=== PATIENT | female | born 1980 | race Asian ===

== ENCOUNTER → 2024-01-23 | Outpatient (CLI) | payer OTHER ==
[~2024-01-23] MED LIST: ALBU8.5H; BENZ200C70 PO; PRED20TA
[2024-01-23 13:51] LABS: BASO % 0.5 % (0.0-1.0); EOS # 0.1 10^3/uL (0.0-0.5); EOS % 1.5 % (0.0-3.0); HEMOGLOBIN 14.3 g/dl (12.0-15.5); LYMPH # 1.2 10^3/uL (1.5-5.0); LYMPH % 14.6 % (24.0-44.0); MEAN CORPUSCULAR HEMOGLOBIN 31.5 pg (27.0-33.0); MEAN CORPUSCULAR HGB CONC 32.5 g/dl (32.0-36.5); MEAN CORPUSCULAR VOLUME 96.9 fl (80.0-96.0); MONO # 1.2 10^3/uL (0.0-0.8); MONO % 14.5 % (2.0-8.0); NEUTROPHILS # 5.5 10^3/uL (1.5-8.5); NEUTROPHILS % 68.7 % (36.0-66.0); PLATELET COUNT, AUTOMATED 282 10^3/uL (150-450); RED BLOOD COUNT 4.54 10^6/uL (4.00-5.40)
[2024-01-23 13:58] LABS: THYROID STIMULATING HORMONE 1.121 uIU/ML (0.55-4.78)
[2024-01-23 13:59] LABS: ALBUMIN 3.9 G/DL (3.2-5.2); ALKALINE PHOSPHATASE 54 U/L (46-116); ALT/SGPT 27 U/L (7.0-40); AST/SGOT 23 U/L (<34); BILIRUBIN,TOTAL 0.8 MG/DL (0.3-1.2); BLOOD UREA NITROGEN 9 MG/DL (9-23); CALCIUM LEVEL 9.3 MG/DL (8.5-10.1); CARBON DIOXIDE LEVEL 25 MMOL/L (20-31); CHLORIDE LEVEL 106 MMOL/L (98-107); CHOLESTEROL LEVEL 209 MG/DL (<200); CREATININE FOR GFR 0.76 MG/DL (0.55-1.30); FREE T4 1.21 NG/DL (0.89-1.76); GLOMERULAR FILTRATION RATE > 60.0 (>58); GLUCOSE, FASTING 94 MG/DL (60-100); HDL CHOLESTEROL 54.9 MG/DL (>40); LDL CHOLESTEROL 136.9 MG/DL (<100); NON-HDL-C 154.1 MG/DL; SODIUM LEVEL 139 MMOL/L (136-145); TOTAL PROTEIN 7.2 G/DL (5.7-8.2); TRIGLYCERIDES LEVEL 86 MG/DL (<150)
== END ==
LOC: M PLALAB 10:12
PROVIDERS: ATTEND Nurse Practitioner Family
DX: R53.83 Other fatigue (principal); Z13.220 Encounter for screening for lipoid disorders

== ENCOUNTER 2024-01-24 22:41 | Emergency (ER) | payer OTHER ==
[~2024-01-24] VITALS: Ht 165.1 cm; Wt 66.7 kg
[2024-01-24 23:40] LABS: BASO % 0.2 % (0.0-1.0); EOS % 0.1 % (0.0-3.0); HEMOGLOBIN 13.7 g/dl (12.0-15.5); LYMPH # 1.4 10^3/uL (1.5-5.0); LYMPH % 12.4 % (24.0-44.0); MEAN CORPUSCULAR HEMOGLOBIN 32.3 pg (27.0-33.0); MEAN CORPUSCULAR HGB CONC 34.3 g/dl (32.0-36.5); MEAN CORPUSCULAR VOLUME 94.3 fl (80.0-96.0); MONO # 0.8 10^3/uL (0.0-0.8); NEUTROPHILS # 8.9 10^3/uL (1.5-8.5); NEUTROPHILS % 79.9 % (36.0-66.0); PLATELET COUNT, AUTOMATED 285 10^3/uL (150-450); RED BLOOD COUNT 4.24 10^6/uL (4.00-5.40); WHITE BLOOD COUNT 11.1 10^3/uL (4.0-10.0)
[2024-01-25 00:04] LABS: ALBUMIN 3.9 G/DL (3.2-5.2); ALKALINE PHOSPHATASE 51 U/L (46-116); ALT/SGPT 25 U/L (7.0-40); AST/SGOT 18 U/L (<34); BILIRUBIN,TOTAL 0.6 MG/DL (0.3-1.2); BLOOD UREA NITROGEN 11 MG/DL (9-23); CALCIUM LEVEL 9.4 MG/DL (8.5-10.1); CARBON DIOXIDE LEVEL 24 MMOL/L (20-31); CHLORIDE LEVEL 109 MMOL/L (98-107); CREATININE FOR GFR 0.61 MG/DL (0.55-1.30); GLOMERULAR FILTRATION RATE > 60.0 (>58); GLUCOSE, FASTING 122 MG/DL (60-100); POTASSIUM SERUM 4.7 MMOL/L (3.5-5.1); SODIUM LEVEL 138 MMOL/L (136-145); TOTAL PROTEIN 7.3 G/DL (5.7-8.2)
[2024-01-25] MEDS ORDERED: PRED20TA (00:36)
[2024-01-25] MEDS ORDERED: ALBU8.5H (00:36)
[2024-01-25 01:03] LABS: CK-MB VALUE MASS < 1.0 NG/ML (<3.6)
[2024-01-25 01:05] LABS: CPK CREATINE PHOSPHOKINASE 518 U/L (34-145); MB/CK RELATIVE INDEX 0.19 (< OR =4)
[2024-01-25] MEDS ORDERED: BENZ200C70 PO (01:34)
[2024-01-25] MEDS: BENZONATATE 100MG CAPSULE PO ONE (01:44)
[2024-01-25] MEDS: KETOROLAC 60MG 2ML VIAL IM ONE (01:44)
[2024-01-25 01:49] VITALS: BP 133/75; TEMP 98.2; O2SAT 99
== END 2024-01-25 01:53 | disposition home or self-care (01) ==
LOC: M ED 22:41
DX: J20.6 Acute bronchitis due to rhinovirus (principal); J44.9 Chronic obstructive pulmonary disease, unspecified; F17.210 Nicotine dependence, cigarettes, uncomplicated; F10.10 Alcohol abuse, uncomplicated; Z91.040 Latex allergy status; Z79.51 Long term (current) use of inhaled steroids; Z79.52 Long term (current) use of systemic steroids; Z79.899 Other long term (current) drug therapy
CPT/HCPCS: 71046; 80053; 82550; 82553; 84484; 85025; 87486; 87581; 87633; 87798; 93005; 96372; 99284; J1885

== ENCOUNTER → 2024-04-21 | Outpatient (REF) | payer OTHER ==
[2024-04-24 13:46] LABS: HPV APTIMA Not Detected (Not Detected)
== END ==
LOC: M SFHCWAGY 14:56
PROVIDERS: ATTEND Nurse Practitioner Family
DX: Z12.4 Encounter for screening for malignant neoplasm of cervix (principal)

== ENCOUNTER → 2024-05-11 | Outpatient (CLI) | payer OTHER, SELFPAY | LOC: M CARPUL 07:26 | PROVIDERS: ATTEND Internal Medicine Critical Care Medicine | DX: J45.40 Moderate persistent asthma, uncomplicated (principal) ==

== ENCOUNTER → 2024-05-18 | Outpatient (CLI) | payer OTHER, SELFPAY ==
[~2024-05-18] MED LIST changes: +METHACHOLINE KIT (6 VIAL.NEB PREMIX) INH ONE
[2024-05-18 10:40] LABS: C REACTIVE PROTEIN QUANTITATIV < 0.40 MG/DL (<1.0)
[2024-05-18 10:44] LABS: IMMUNOGLOBULIN E 101.7 IU/ML (0-378); TOTAL 25(OH) VITAMIN D 16.3 NG/ML (20.0-100.0)
== END ==
LOC: M CARPUL 08:26
PROVIDERS: ATTEND Internal Medicine Critical Care Medicine
DX: J45.40 Moderate persistent asthma, uncomplicated (principal)
CPT/HCPCS: 36415; 82306; 82785; 85652; 86003; 86140; 86606; 94070; J7674

== ENCOUNTER → 2024-05-28 | Outpatient (CLI) | payer OTHER ==
[~2024-05-28] MED LIST changes: -METHACHOLINE KIT (6 VIAL.NEB PREMIX) INH ONE
== END ==
LOC: M WHC 07:21
PROVIDERS: ATTEND Nurse Practitioner Family
DX: D25.9 Leiomyoma of uterus, unspecified (principal)

== ENCOUNTER → 2024-07-19 | Outpatient (CLI) | payer OTHER | LOC: M PLAIMG 08:36 | PROVIDERS: ATTEND Nurse Practitioner Family | DX: M54.50 Low back pain, unspecified (principal) ==

== ENCOUNTER → 2024-08-30 | Outpatient (CLI) | payer OTHER | LOC: M RAD 06:31 | PROVIDERS: ATTEND Nurse Practitioner Family | DX: M54.16 Radiculopathy, lumbar region (principal); M51.27 Other intervertebral disc displacement, lumbosacral region; M51.379 Other intervertebral disc degeneration, lumbosacral region without mention of lumbar back pain or lower extremity pain ==

== ENCOUNTER 2024-11-14 21:18 | Inpatient (IN) | payer OTHER ==
[~2024-11-14] VITALS: Ht 165.1 cm; Wt 78.1 kg
[~2024-11-14 21:18] MED LIST changes: -ALBU8.5H; +ALBU8.5H INH
[2024-11-14 23:51] LABS: ALBUMIN 3.9 G/DL (3.2-5.2); ALKALINE PHOSPHATASE 40 U/L (35-104); ALT/SGPT 31 U/L (7.0-40); AST/SGOT 58 U/L (<34); BILIRUBIN,DIRECT 0.2 MG/DL (<0.4); BILIRUBIN,TOTAL 0.8 MG/DL (0.3-1.2); BLOOD UREA NITROGEN 12 MG/DL (9-23); CALCIUM LEVEL 8.9 MG/DL (8.5-10.1); CARBON DIOXIDE LEVEL 24 MMOL/L (20-31); CHLORIDE LEVEL 108 MMOL/L (98-107); CK-MB VALUE MASS < 1.0 NG/ML (<3.6); CPK CREATINE PHOSPHOKINASE 120 U/L (34-145); CREATININE FOR GFR 0.67 MG/DL (0.55-1.30); GLOMERULAR FILTRATION RATE > 60.0 (>58); GLUCOSE, FASTING 95 MG/DL (60-100); LIPASE 71 U/L (12-53); MB/CK RELATIVE INDEX 0.83 (< OR =4); POTASSIUM SERUM 5.5 MMOL/L (3.5-5.1); SODIUM LEVEL 140 MMOL/L (136-145); TOTAL PROTEIN 7.2 G/DL (5.7-8.2)
[2024-11-15] MEDS ORDERED: ISOVUE-370 76% 100ML VIAL As Ordered ONE (00:11)
[2024-11-15 00:20] LABS: INR 0.87; POTASSIUM SERUM 4.9 MMOL/L (3.5-5.1); PROTHROMBIN TIME 12.1 SECONDS (12.5-14.5)
[2024-11-15 00:30] LABS: BASO # 0.1 10^3/uL (0.0-0.2); BASO % 0.8 % (0.0-1.0); EOS # 0.9 10^3/uL (0.0-0.5); EOS % 10.3 % (0.0-3.0); HEMATOCRIT 40.5 % (36.0-47.0); HEMOGLOBIN 13.4 g/dl (12.0-15.5); LYMPH % 22.1 % (24.0-44.0); MEAN CORPUSCULAR HEMOGLOBIN 32.1 pg (27.0-33.0); MEAN CORPUSCULAR HGB CONC 33.1 g/dl (32.0-36.5); MEAN CORPUSCULAR VOLUME 96.9 fl (80.0-96.0); MONO # 0.7 10^3/uL (0.0-0.8); MONO % 7.9 % (2.0-8.0); NEUTROPHILS # 5.2 10^3/uL (1.5-8.5); NEUTROPHILS % 58.7 % (36.0-66.0); PLATELET COUNT, AUTOMATED 362 10^3/uL (150-450); RED BLOOD COUNT 4.18 10^6/uL (4.00-5.40); WHITE BLOOD COUNT 8.8 10^3/uL (4.0-10.0)
[2024-11-15] MEDS ORDERED: NICOTINE 14 MG/24 HR TRANSDERMAL TD PRN (03:20)
[2024-11-15] MEDS ORDERED: MAALOX 30 ML SUSP *UDC PO PRN (03:20)
[2024-11-15] MEDS ORDERED: MOM 30ML SUSPENSION UDC PO PRN (03:20)
[2024-11-15] MEDS ORDERED: ACETAMINOPHEN 325 MG TAB PO PRN (03:20)
[2024-11-15 03:56] LABS: MAGNESIUM LEVEL 2.2 MG/DL (1.8-2.4)
[2024-11-15] MEDS ORDERED: BENA25CA4 PO (04:06)
[2024-11-15] MEDS ORDERED: ADVI200T PO (04:06)
[2024-11-15] MEDS ORDERED: MONT10TA97 PO (04:06)
[2024-11-15] MEDS ORDERED: TIZA10TA PO (04:06)
[2024-11-15] MEDS ORDERED: GABA-1171 PO ×2 (04:06)
[2024-11-15] MEDS ORDERED: VITA200031 PO (04:06)
[2024-11-15] MEDS ORDERED: IPRA0.00 INH (04:06)
[2024-11-15] MEDS ORDERED: IBUP200C25 PO (04:06)
[2024-11-15] MEDS ORDERED: BUDE10.2 INH (04:06)
[2024-11-15] MEDS ORDERED: HOME MED LIST COMPLETE! XX SCH (04:10)
[2024-11-15 04:27] VITALS: TEMP 98.3
[2024-11-15 07:57] VITALS: O2SAT 96
[2024-11-15 08:00] VITALS: BP 103/73
[2024-11-15 08:03] LABS: HEMATOCRIT 38.1 % (36.0-47.0); HEMOGLOBIN 13.1 g/dl (12.0-15.5); MEAN CORPUSCULAR HEMOGLOBIN 32.8 pg (27.0-33.0); MEAN CORPUSCULAR HGB CONC 34.4 g/dl (32.0-36.5); MEAN CORPUSCULAR VOLUME 95.5 fl (80.0-96.0); PLATELET COUNT, AUTOMATED 342 10^3/uL (150-450); RED BLOOD COUNT 3.99 10^6/uL (4.00-5.40); WHITE BLOOD COUNT 9.4 10^3/uL (4.0-10.0)
[2024-11-15 08:26] LABS: ALBUMIN 3.6 G/DL (3.2-5.2); ALKALINE PHOSPHATASE 45 U/L (35-104); ALT/SGPT 21 U/L (7.0-40); AST/SGOT 14 U/L (<34); BILIRUBIN,TOTAL 0.9 MG/DL (0.3-1.2); BLOOD UREA NITROGEN 9 MG/DL (9-23); CALCIUM LEVEL 8.6 MG/DL (8.5-10.1); CARBON DIOXIDE LEVEL 21 MMOL/L (20-31); CHLORIDE LEVEL 111 MMOL/L (98-107); CREATININE FOR GFR 0.69 MG/DL (0.55-1.30); GLOMERULAR FILTRATION RATE > 60.0 (>58); GLUCOSE, FASTING 101 MG/DL (60-100); POTASSIUM SERUM 4.2 MMOL/L (3.5-5.1); SODIUM LEVEL 140 MMOL/L (136-145); TOTAL PROTEIN 6.4 G/DL (5.7-8.2)
[2024-11-15] MEDS ORDERED: DOCUSATE SODIUM 100MG CAPSULE PO SCH (09:00)
== END 2024-11-15 08:00 | disposition home or self-care (01) | DRG 313 ==
LOC: M ED 21:18 → M ED INP 11-15 03:17
PROVIDERS: ADMIT Student in an Organized Health Care Education/Training Program; ATTEND Internal Medicine
DX: R07.89 Other chest pain (principal); J94.8 Other specified pleural conditions; F17.200 Nicotine dependence, unspecified, uncomplicated; M54.30 Sciatica, unspecified side; Z85.3 Personal history of malignant neoplasm of breast; Z90.10 Acquired absence of unspecified breast and nipple; Z91.040 Latex allergy status; Z79.52 Long term (current) use of systemic steroids; Z79.51 Long term (current) use of inhaled steroids

== ENCOUNTER → 2025-03-11 | Outpatient (CLI) | payer OTHER ==
[~2025-03-11] MED LIST changes: +ADVI200T PO; +BENA25CA4 PO; +BUDE10.2 INH; +GABA-1171 PO; +IBUP200C25 PO; +IPRA0.00 INH; +MONT10TA97 PO; +TIZA10TA PO; +VITA200031 PO
[2025-03-11 10:32] LABS: PLATELET COUNT, AUTOMATED 373 10^3/uL (150-450)
[2025-03-11 11:19] LABS: ALT/SGPT 24 U/L (7.0-40); AST/SGOT 19 U/L (<34); CA19-9 TUMOR MARKER,CARBOHYDRA 12.0 U/ML (<35.0); CALCIUM LEVEL 10.2 MG/DL (8.5-10.1); CARBON DIOXIDE LEVEL 28 MMOL/L (20-31); CHLORIDE LEVEL 106 MMOL/L (98-107); CREATININE FOR GFR 0.70 MG/DL (0.55-1.30); GLOMERULAR FILTRATION RATE > 90.0 (>58); POTASSIUM SERUM 5.1 MMOL/L (3.5-5.1); SODIUM LEVEL 144 MMOL/L (136-145)
== END ==
LOC: M PLALAB 09:04
DX: Z85.3 Personal history of malignant neoplasm of breast (principal); Z80.0 Family history of malignant neoplasm of digestive organs

== ENCOUNTER → 2025-03-16 | Outpatient (CLI) | payer OTHER ==
[2025-03-16 09:15] LABS: BASO # 0.1 10^3/uL (0.0-0.2); BASO % 0.9 % (0.0-1.0); EOS # 0.4 10^3/uL (0.0-0.5); EOS % 6.3 % (0.0-3.0); LYMPH # 1.0 10^3/uL (1.5-5.0); LYMPH % 18.2 % (24.0-44.0); MONO # 0.4 10^3/uL (0.0-0.8); MONO % 7.6 % (2.0-8.0); NEUTROPHILS # 3.7 10^3/uL (1.5-8.5); NEUTROPHILS % 66.6 % (36.0-66.0); PLATELET COUNT, AUTOMATED 379 10^3/uL (150-450)
== END ==
LOC: M LAB 07:49
PROVIDERS: ATTEND Internal Medicine Critical Care Medicine
DX: F17.218 Nicotine dependence, cigarettes, with other nicotine-induced disorders (principal)

== ENCOUNTER → 2025-05-30 | Outpatient (CLI) | payer OTHER ==
[2025-05-30 10:57] LABS: BASO # 0.1 10^3/uL (0.0-0.2); BASO % 0.7 % (0.0-1.0); EOS # 0.1 10^3/uL (0.0-0.5); EOS % 1.3 % (0.0-3.0); LYMPH # 1.2 10^3/uL (1.5-5.0); LYMPH % 15.7 % (24.0-44.0); MONO # 0.6 10^3/uL (0.0-0.8); MONO % 7.6 % (2.0-8.0); NEUTROPHILS # 5.7 10^3/uL (1.5-8.5); NEUTROPHILS % 74.3 % (36.0-66.0); PLATELET COUNT, AUTOMATED 343 10^3/uL (150-450)
[2025-05-30 10:59] LABS: ALT/SGPT 18 U/L (7.0-40); AST/SGOT 15 U/L (<34); CALCIUM LEVEL 10.1 MG/DL (8.5-10.1); CARBON DIOXIDE LEVEL 28 MMOL/L (20-31); CHLORIDE LEVEL 107 MMOL/L (98-107); CHOLESTEROL LEVEL 220 MG/DL (<200); CHOLESTEROL RISK RATIO 2.83 (<5); CREATININE FOR GFR 0.66 MG/DL (0.55-1.30); GLOMERULAR FILTRATION RATE > 90.0 (>58); LDL CHOLESTEROL 125.6 MG/DL (<100); NON-HDL-C 142.4 MG/DL; POTASSIUM SERUM 4.8 MMOL/L (3.5-5.1); SODIUM LEVEL 144 MMOL/L (136-145); TRIGLYCERIDES LEVEL 84 MG/DL (<150)
[2025-05-30 11:30] LABS: ESTIMATED AVERAGE GLUCOSE 111.0 MG/DL (60-110)
== END ==
LOC: M PLALAB 08:42
PROVIDERS: ATTEND Nurse Practitioner Family
DX: Z00.00 Encounter for general adult medical examination without abnormal findings (principal); R73.01 Impaired fasting glucose; E55.9 Vitamin D deficiency, unspecified; R53.83 Other fatigue; E78.2 Mixed hyperlipidemia

== ENCOUNTER → 2025-07-25 | Outpatient (REF) | payer OTHER ==
[~2025-07-25] MED LIST changes: +DUPI300P; +PREG50CA3 PO
== END ==
LOC: M SFHCPLAZ 11:15
DX: R11.2 Nausea with vomiting, unspecified (principal)

== ENCOUNTER → 2025-07-25 | Outpatient (CLI) | payer OTHER ==
[~2025-07-25] MED LIST changes: +ISOVUE-370 76% 100 ML VIAL ONE
[2025-07-25 13:42] LABS: BASO # 0.0 10^3/uL (0.0-0.2); BASO % 0.3 % (0.0-1.0); EOS # 0.3 10^3/uL (0.0-0.5); EOS % 3.6 % (0.0-3.0); LYMPH # 0.9 10^3/uL (1.5-5.0); LYMPH % 10.9 % (24.0-44.0); MONO # 0.6 10^3/uL (0.0-0.8); MONO % 7.5 % (2.0-8.0); NEUTROPHILS # 6.2 10^3/uL (1.5-8.5); NEUTROPHILS % 77.4 % (36.0-66.0); PLATELET COUNT, AUTOMATED 315 10^3/uL (150-450)
[2025-07-25 14:11] LABS: ALT/SGPT 22 U/L (7.0-40); AST/SGOT 16 U/L (<34); CALCIUM LEVEL 9.3 MG/DL (8.5-10.1); CARBON DIOXIDE LEVEL 28 MMOL/L (20-31); CHLORIDE LEVEL 108 MMOL/L (98-107); CREATININE FOR GFR 0.70 MG/DL (0.55-1.30); GLOMERULAR FILTRATION RATE > 90.0 (>58); POTASSIUM SERUM 4.1 MMOL/L (3.5-5.1); SODIUM LEVEL 142 MMOL/L (136-145)
[2025-07-25 14:24] LABS: OSMOLALITY SERUM 292 MOSM/KG (275-295)
== END ==
LOC: M PLAIMG 11:56 → M PLALAB 11:56
DX: R11.2 Nausea with vomiting, unspecified (principal)
CPT/HCPCS: 36415; 74177; 80053; 83690; 83930; 85025; Q9967

== ENCOUNTER → 2025-07-27 | Outpatient (REF) | payer OTHER ==
[~2025-07-27] MED LIST changes: -ISOVUE-370 76% 100 ML VIAL ONE
== END ==
LOC: M SFHCPLAZ 15:01
DX: R19.7 Diarrhea, unspecified (principal)

== ENCOUNTER → 2025-08-08 | Day surgery (SDC) | payer OTHER ==
[~2025-08-08] VITALS: Ht 165.1 cm; Wt 63.5 kg
[~2025-08-08] MED LIST changes: +LIDOCAINE 2% 100 MG/5 ML SDV (FOR ANES.) As Ordered ONE
[2025-08-08 13:00] VITALS: TEMP 97.9
[2025-08-08 13:11] VITALS: BP 97/69; O2SAT 97
== END | disposition home or self-care (01) ==
LOC: M OPP 10:58
PROVIDERS: ATTEND Surgery
DX: K64.0 First degree hemorrhoids (principal); K44.9 Diaphragmatic hernia without obstruction or gangrene; K92.1 Melena; Z72.0 Tobacco use; Z79.899 Other long term (current) drug therapy; Z90.710 Acquired absence of both cervix and uterus; Z91.018 Allergy to other foods; Z91.040 Latex allergy status; Z92.21 Personal history of antineoplastic chemotherapy